=== PATIENT | male | born 1975 | race American Indian/Alaskan Native ===

== ENCOUNTER 2017-07-01 17:45 | Inpatient (IN) | payer BC, OTHER ==
[2017-07-01 18:23] LABS: Monocytes % (Auto) 5.4 % (0.0-7.3); Red Blood Count 4.98 M/mm3 (3.65-5.03)
[2017-07-01] MEDS ORDERED: NACL 0.9% 1000 ML 1,000 ML ONE (18:26)
[2017-07-01 18:33] LABS: Lymphocytes # (Auto) 0.9 K/mm3 (1.2-5.4)
[2017-07-01] MEDS ORDERED: NACL 0.9% 1000 ML 1,000 ML IV ONE (18:40)
[2017-07-01 18:48] LABS: Bilirubin,Urine NEG (Negative); Blood,Urine MOD (Negative); Color,Urine Straw (Yellow); Mucus,Urine FEW /HPF; Protein,Urine <15 mg/dL mg/dL (Negative); RBC,Urine < 1.0 /HPF (0.0-6.0); Urobilinogen,Urine < 2.0 mg/dL (<2.0)
[2017-07-01 18:58] LABS: Basophils % (Auto) 0.3 % (0.0-1.8); Hematocrit 48.2 % (35.5-45.6); Hemoglobin 14.5 gm/dl (11.8-15.2); Lymphocytes % (Auto) 5.5 % (13.4-35.0); Mean Corpuscular HGB Conc 30 % (32-34); Mean Corpuscular Hemoglobin 29 pg (28-32); Mean Corpuscular Volume 97 fl (84-94); Platelet Count 373 K/mm3 (140-440)
--- NOTE | 2017-07-01 19:04 | Emergency Department Report ---
ED General Adult HPI - General Chief complaint: Hyperglycemia Stated complaint: ABD PAIN/VOMITING Time Seen by Provider: 07/01/17 18:20 Source: patient Mode of arrival: Wheelchair Limitations: No Limitations - History of Present Illness Initial comments: Patient presents to emergency department with 2 weeks of increased thirst and urination. Patient also has had unexplained weight loss. Patient describes a spelled week as well for last 2 weeks. The patient denies chest pain, shortness breath, headache -: Gradual Radiation: non-radiation Severity scale (0 -10): 0 Quality: other (weak) Consistency: constant Improves with: none Worsens with: none Associated Symptoms: other (increased urination, increased thirst, unexplained weight loss) Treatments Prior to Arrival: none - Related Data Allergies Allergy/AdvReac Type Severity Reaction Status Date / Time No Known Allergies Allergy Unverified 07/01/17 17:53 ED Review of Systems ROS: Stated complaint: ABD PAIN/VOMITING Other details as noted in HPI Constitutional: denies: chills, fever Eyes: denies: eye pain, eye discharge, vision change ENT: denies: ear pain, throat pain Respiratory: denies: cough, shortness of breath, wheezing Cardiovascular: denies: chest pain, palpitations Endocrine: increased thirst, increased urine, unexplained weight loss Gastrointestinal: denies: abdominal pain, nausea, diarrhea Genitourinary: denies: urgency, dysuria Musculoskeletal: denies: back pain, joint swelling, arthralgia Skin: denies: rash, lesions Neurological: denies: headache, weakness, paresthesias Psychiatric: denies: anxiety, depression Hematological/Lymphatic: denies: easy bleeding, easy bruising ED Past Medical Hx - Past Medical History Previous Medical History?: No - Surgical History Past Surgical History?: No - Social History Smoking Status: Smoker, Current Status Unknown Substance Use Type: None ED Physical Exam - General Limitations: No Limitations General appearance: alert, in no apparent distress - Head Head exam: Present: atraumatic, normocephalic - Eye Eye exam: Present: normal appearance - ENT ENT exam: Present: mucous membranes dry, other - Neck Neck exam: Present: normal inspection - Respiratory Respiratory exam: Present: normal lung sounds bilaterally. Absent: respiratory distress - Cardiovascular Cardiovascular Exam: Present: normal rhythm, tachycardia. Absent: systolic murmur, diastolic murmur, rubs, gallop - GI/Abdominal GI/Abdominal exam: Present: soft, normal bowel sounds - Rectal Rectal exam: Present: deferred - Extremities Exam Extremities exam: Present: normal inspection - Back Exam Back exam: Present: normal inspection - Neurological Exam Neurological exam: Present: alert, oriented X3 - Psychiatric Psychiatric exam: Present: normal affect, normal mood - Skin Skin exam: Present: warm, dry, intact, normal color. Absent: rash ED Course Vital Signs 07/01/17 07/01/17 07/01/17 17:53 18:19 18:20 Temperature 97.5 F L Pulse Rate 118 H 100 H 100 H Respiratory 18 17 Rate Blood Pressure 143/94 Blood Pressure 128/93 [Left] O2 Sat by Pulse 98 99 Oximetry ED Medical Decision Making - Lab Data Result diagrams: 07/01/17 18:02 07/01/17 18:02 - Medical Decision Making Discussed results with patient and his spouse. 3 L of IV fluid were given Insulin drip was started Critical Care Time: Yes Critical care time in (mins) excluding proc time.: 45 Critical care attestation.: If time is entered above; I have spent that time in minutes in the direct care of this critically ill patient, excluding procedure time. ED Disposition Clinical Impression: DKA (diabetic ketoacidoses) Disposition: DC-09 OP ADMIT IP TO THIS HOSP Is pt being admited?: Yes Does the pt Need Aspirin: No Condition: Fair Instructions: Diabetic Ketoacidosis (ED) Referrals: YAMILKA BURROUGHS MD [Staff Physician] - 3-5 Days Time of Disposition: 19:36
[2017-07-01] MEDS ORDERED: NACL 0.9% 1000 ML 2,000 ML IV ONE (19:10)
[2017-07-01] MEDS ORDERED: D50W (25GM) Syringe IV PRN ×2 (19:21→21:36)
[2017-07-01] MEDS: HumuLIN R 100 UNITS in NACL 0.9% 99 ML IV SCH ×2 (20:01→23:09)
[2017-07-01 20:12] LABS: Calcium 8.6 mg/dL (8.4-10.2)
--- NOTE | 2017-07-01 21:40 | History and Physical Report ---
History of Present Illness Date of examination: 07/01/17 Date of admission: 07/01/17 19:37 Chief complaint: Feeling sick History of present illness: A 42 y/o male with no significant Med history, Presented with N/V, feeling sick , found to have BG more than 1000. Per pt and girlfriend by the bedside, pt has been sick for more than 2-3 weeks, with 60 lb weight loss, poor appetite, abdominal pain, N/V, diarrhea. 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 Due to being very sick, pt was in bed for about a week, refused to come to the ED, but was then forced to come by his girlfriend. Pt is severely weak and he is barely able to speak. ED Course On presentation to the ED BG was more than 1000, pt was found to be in severe DKA, he received IVF boluses , then started on Insulin drip . Stabilized enough and then referred to the hospital medicine service for admission and management Past History Past Medical History: denies: diabetes, hyperthyroidism, hypertension Past Surgical History: denies: No surgical history, appendectomy Social history: single, lives with family (ocasional alcohol use, he is a truck rental service attendant) Family history: diabetes (in mother) Medications and Allergies Allergies Allergy/AdvReac Type Severity Reaction Status Date / Time No Known Allergies Allergy Unverified 07/01/17 17:53 Active Meds: Active Medications Dextrose (D50w (25gm) Syringe) 0 ml IV PRN PRN PRN Reason: Hypoglycemia Insulin Human Regular 100 (units/ Sodium Chloride) 100 mls @ 1 mls/hr IV TITR GUIDO; Protocol Last Admin: 07/01/17 20:01 Dose: 8 units/hr, 8 mls/hr Review of Systems Constitutional: weight loss, anorexia, fatigue, weakness, malaise, poor appetite Eyes: bilateral: blurred vision, decreased vision Ears, nose, mouth and throat: no ear pain, no ear discharge, no tinnitis, no decreased hearing, no nasal congestion, no nasal discharge Cardiovascular: no chest pain, no orthopnea, no palpitations, no rapid/ irregular heart beat Respiratory: no cough with sputum, no excessive sputum, no wheezing, no pleurisy Gastrointestinal: abdominal pain, nausea, vomiting, diarrhea, constipation (now constipated) Genitourinary Male: urinary frequency, urinary hesitancy (polyuria), no dysuria Rectal: no incontinence, no itching, no hemorrhoids Musculoskeletal: muscle weakness, no low back pain, no shooting leg pain, no leg numbness/tingling, no muscle cramps, no myalgias, no limitation of motion Integumentary: no pruritis, no darkening of skin, no depigmentation, no dryness , no color changes Neurological: weakness, balance difficulties, no tingling, no convulsions, no aphasia, no change in speech Psychiatric: no anxiety, no memory loss, no sleep disturbances, no hopelessness , no anhedonia Endocrine: polyphagia, excessive thirst, polydipsia, polyuria, weight change Hematologic/Lymphatic: no easy bruising, no lymphadenopathy, no lymphedema Allergic/Immunologic: seasonal allergies, no allergic rhinitis, no anaphylaxis, no angioedema Exam - Constitutional Vitals: Temp Pulse Resp BP Pulse Ox 98.1 F 102 H 14 128/95 98 07/01/17 21:00 07/01/17 20:27 07/01/17 20:27 07/01/17 20:27 07/01/17 20:27 General appearance: Present: no acute distress, other (slim stature, extremely weak) - EENT Eyes: Present: PERRL, EOM intact ENT: hearing intact, dentition normal, thrush (extensive) - Neck Neck: Present: supple, normal ROM - Respiratory Respiratory: bilateral: CTA, negative: diminished, rales - Cardiovascular Rhythm: regular Heart Sounds: Present: S1 & S2 - Extremities Extremities: no ischemia, pulses intact, No edema, normal temperature, normal color Peripheral Pulses: within normal limits - Abdominal General gastrointestinal: Present: soft, non-tender, non-distended, normal bowel sounds Male genitourinary: Present: deferred - Rectal Rectal Exam: deferred - Integumentary Integumentary: Present: clear, warm, decreased turgor - Musculoskeletal Musculoskeletal: strength equal bilaterally, generalized weakness - Psychiatric Psychiatric: appropriate mood/affect, intact judgment & insight, memory intact, cooperative - Neurologic Neurologic: CNII-XII intact, moves all extremities - Allied Health Allied health notes reviewed: nursing Results - Labs CBC & Chem 7: 07/01/17 18:02 07/02/17 04:25 Labs: Laboratory Last Values WBC 17.2 K/mm3 (4.5-11.0) H 07/01/17 18: RBC 4.98 M/mm3 (3.65-5.03) 07/01/17 18:02 Hgb 14.5 gm/dl (11.8-15.2) 07/01/17 18:02 Hct 48.2 % (35.5-45.6) H 07/01/17 18:02 MCV 97 fl (84-94) H 07/01/17 18:02 MCH 29 pg (28-32) 07/01/17 18: MCHC 30 % (32-34) L 07/01/17 18: RDW 14.0 % (13.2-15.2) 07/01/17 18: Plt Count 373 K/mm3 (140-440) 07/01/17 18:02 Lymph % (Auto) 5.5 % (13.4-35.0) L 07/01/17 18: [place] % (Auto) 5.4 % (0.0-7.3) 07/01/17 18: Eos % (Auto) 0.0 % (0.0-4.3) 07/01/17 18:02 Baso % (Auto) 0.3 % (0.0-1.8) 07/01/17 18:02 Lymph # 0.9 K/mm3 (1.2-5.4) L 07/01/17 18:02 [place] # 1.0 K/mm3 (0.0-0.8) H 07/01/17 18:02 Eos # 0.0 K/mm3 (0.0-0.4) 07/01/17 18:02 Baso # 0.0 K/mm3 (0.0-0.1) 07/01/17 18: Seg Neutrophils % 88.7 % (40.0-70.0) H 07/01/17 18: Seg Neutrophils # 15.9 K/mm3 (1.8-7.7) H 07/01/17 18:02 VBG pH 7.105 (7.320-7.420) L* 07/01/17 18:02 Sodium 125 mmol/L (137-145) L 07/01/17 19:30 Potassium 6.2 mmol/L (3.6-5.0) H* 07/01/17 19:30 Chloride 78.8 mmol/L (98-107) L 07/01/17 19:30 Carbon Dioxide 9 mmol/L (22-30) L* 07/01/17 19:30 Anion Gap 43 mmol/L 07/01/17 19:30 BUN 31 mg/dL (9-20) H 07/01/17 19:30 Creatinine 1.6 mg/dL (0.8-1.5) H 07/01/17 19:30 Estimated GFR 58 ml/min 07/01/17 19:30 BUN/Creatinine Ratio 19 % 07/01/17 19:30 Glucose 1012 mg/dL (75-100) H* 07/01/17 19:30 POC Glucose > 500 (70-105) H 07/01/17 17:53 Calcium 8.6 mg/dL (8.4-10.2) 07/01/17 19:30 Phosphorus 6.10 mg/dL (2.5-4.5) H 07/01/17 19:30 Magnesium 2.70 mg/dL (1.7-2.3) H 07/01/17 19:30 Urine Color Straw (Yellow) 07/01/17 18:38 Urine Turbidity Clear (Clear) 07/01/17 18:38 Urine pH 5.0 (5.0-7.0) 07/01/17 18:38 Ur Specific [place] 1.026 (1.003-1.030) 07/01/17 18:38 Urine Protein <15 mg/dl mg/dL (Negative) 07/01/17 18:38 Urine Glucose (UA) >=500 mg/dL (Negative) 07/01/17 18:38 Urine Ketones 80 mg/dL (Negative) 07/01/17 18:38 Urine Blood Mod (Negative) 07/01/17 18:38 Urine Nitrite Neg (Negative) 07/01/17 18:38 Urine Bilirubin Neg (Negative) 07/01/17 18:38 Urine Urobilinogen < 2.0 mg/dL (<2.0) 07/01/17 18:38 Ur Leukocyte Esterase Neg (Negative) 07/01/17 18:38 Urine WBC (Auto) 1.0 /HPF (0.0-6.0) 07/01/17 18:38 Urine RBC (Auto) < 1.0 /HPF (0.0-6.0) 07/01/17 18:38 Urine Mucus Few /HPF 07/01/17 18:38 Assessment and Plan Assessment and plan: Severe DKA ( New Onset DM ) Severe Dehydration with hyponatremia Acut Hyperkalemia 2/2 severe acidosis Oral candidiasis Weight loss Macrocytosis Leukocytosis 2/2 dehydration and DKA Generalized weakness N/V Poor Appetite Plan Admit inpt to ICU DKA protocol Nystatin Nutrition consult Fall precautions at all times' Aggressive IVF hydration Q2-4 bmp TSH HBA1c recheck ABG Monitor very closely pt is critically sick and at risk of deterioration, increased Morbidity and mortality including . More than 40 mins of CCT spent, of which more than 50% of the time was spent in pt counseling and coordination of care.
[2017-07-01] MEDS ORDERED: HumuLIN R 100 UNITS in NACL 0.9% 99 ML IV SCH (22:00)
[2017-07-01 22:42] LABS: BUN/Creatinine Ratio 21; Blood Urea Nitrogen 27 mg/dL (9-20); Calcium 7.9 mg/dL (8.4-10.2); Hemolysis Index 6
[2017-07-01 23:57] LABS: BUN/Creatinine Ratio 19; Blood Urea Nitrogen 26 mg/dL (9-20); Calcium 7.6 mg/dL (8.4-10.2); Hemolysis Index 4
[2017-07-02] MEDS: HumuLIN R 100 UNITS in NACL 0.9% 99 ML IV SCH (00:09)
[2017-07-02] MEDS: D5W/0.45% NACL/KCL 20 MEQ 20 MEQ/1,000 ML BAG IV SCH ×2 (03:05→11:25)
[2017-07-02] MEDS ORDERED: DIFLUCAN 200 MG/100 ML BAG IV ONE (04:43)
[2017-07-02] MEDS ORDERED: LOVENOX SUB-Q ONE (04:44)
[2017-07-02 04:58] LABS: BUN/Creatinine Ratio 17; Blood Urea Nitrogen 20 mg/dL (9-20); Hemolysis Index 4
[2017-07-02 09:40] LABS: BUN/Creatinine Ratio 19; Blood Urea Nitrogen 19 mg/dL (9-20); Calcium 8.8 mg/dL (8.4-10.2)
[2017-07-02 09:41] LABS: Hemolysis Index 14
[2017-07-02] MEDS ORDERED: PROTONIX IV SCH (10:00)
--- NOTE | 2017-07-02 10:12 | Progress Note ---
Assessment and Plan Assessment and plan: --Diabetic ketoacidosis; Continue DKA protocol, vigorous IV hydration, insulin drip Closely monitor electrolytes and correct as needed Clear liquids as tolerated, he may start ADA diet and transitioned to long- acting insulin once a-gap closes and blood sugars are reasonable levels Hemoglobin A1c 16.0 --New onset diabetes mellitus; Diabetic education, nutrition consult Hospital home health at discharge as needed --Severe acidosis; secondary to DKA Continue IV fluids and supportive care --Pseudohyponatremia; secondary to hyperglycemia Improved --Hyperkalemia; corrected, closely monitor electrolytes --Acute kidney injury; vasomotor nephropathy Continue vigorous IV hydration, closely monitor renal function and avoid nephrotoxins Trending down --DVT prophylaxis; with Lovenox Closely monitor the patient and adjust management as needed Critical care time 32 minutes History Interval history: Patient seen and examined medical records reviewed Admitted with diabetic ketoacidosis, new onset diabetes On insulin drip, nothing by mouth status Patient's acidosis and anion gap gradually improving Patient is lethargic but easily awakens asks for some water Denies nausea vomiting Vital signs reviewed Hospitalist Physical - Constitutional Vitals: Temp Pulse Resp BP Pulse Ox 98.1 F 76 10 L 119/69 99 07/02/17 04:02 07/02/17 08:00 07/02/17 08:00 07/02/17 08:00 07/02/17 08:00 General appearance: Present: no acute distress, well-nourished, other (lethargy easily awakens) - EENT Eyes: Present: PERRL, EOM intact - Neck Neck: Present: supple, normal ROM - Respiratory Respiratory effort: normal Respiratory: negative: rales, rhonchi, wheezing - Cardiovascular Rhythm: regular Heart Sounds: Present: S1 & S2 - Extremities Extremities: no ischemia, No edema - Abdominal General gastrointestinal: soft, non-tender, non-distended, normal bowel sounds - Integumentary Integumentary: Present: clear, warm - Psychiatric Psychiatric: appropriate mood/affect, cooperative - Neurologic Neurologic: CNII-XII intact, moves all extremities Results - Labs CBC & Chem 7: 07/01/17 18:02 07/02/17 08:46 Labs: Laboratory Last Values WBC 17.2 K/mm3 (4.5-11.0) H 07/01/17 18:02 RBC 4.98 M/mm3 (3.65-5.03) 07/01/17 18:02 Hgb 14.5 gm/dl (11.8-15.2) 07/01/17 18:02 Hct 48.2 % (35.5-45.6) H 07/01/17 18:02 MCV 97 fl (84-94) H 07/01/17 18:02 MCH 29 pg (28-32) 07/01/17 18: MCHC 30 % (32-34) L 07/01/17 18:02 RDW 14.0 % (13.2-15.2) 07/01/17 18: Plt Count 373 K/mm3 (140-440) 07/01/17 18:02 Lymph % (Auto) 5.5 % (13.4-35.0) L 07/01/17 18:02 [place] % (Auto) 5.4 % (0.0-7.3) 07/01/17 18:02 Eos % (Auto) 0.0 % (0.0-4.3) 07/01/17 18:02 Baso % (Auto) 0.3 % (0.0-1.8) 07/01/17 18:02 Lymph # 0.9 K/mm3 (1.2-5.4) L 07/01/17 18:02 [place]ell # 1.0 K/mm3 (0.0-0.8) H 07/01/17 18:02 Eos # 0.0 K/mm3 (0.0-0.4) 07/01/17 18: Baso # 0.0 K/mm3 (0.0-0.1) 07/01/17 18:02 Seg Neutrophils % 88.7 % (40.0-70.0) H 07/01/17 18: Seg Neutrophils # 15.9 K/mm3 (1.8-7.7) H 07/01/17 18:02 VBG pH 7.105 (7.320-7.420) L* 07/01/17 18:02 Sodium 145 mmol/L (137-145) 07/02/17 08:46 Potassium 4.2 mmol/L (3.6-5.0) 07/02/17 08:46 Chloride 109.3 mmol/L (98-107) H 07/02/17 08:46 Carbon Dioxide 16 mmol/L (22-30) L 07/02/17 08:46 Anion Gap 24 mmol/L 07/02/17 08:46 BUN 19 mg/dL (9-20) 07/02/17 08:46 Creatinine 1.0 mg/dL (0.8-1.5) 07/02/17 08:46 Estimated GFR > 60 ml/min 07/02/17 08:46 BUN/Creatinine Ratio 19 % 07/02/17 08:46 Glucose 233 mg/dL (75-100) H 07/02/17 08:46 POC Glucose 218 (70-105) H 07/02/17 09:12 Hemoglobin A1c 16.0 % (4-6) H 07/01/17 21:56 Calcium 8.8 mg/dL (8.4-10.2) 07/02/17 08:46 Phosphorus 2.40 mg/dL (2.5-4.5) L D 07/01/17 21:56 Magnesium 2.40 mg/dL (1.7-2.3) H 07/01/17 21:56 TSH 0.435 mlU/mL (0.270-4.200) 07/02/17 08:46 Urine Color Straw (Yellow) 07/01/17 18:38 Urine Turbidity Clear (Clear) 07/01/17 18:38 Urine pH 5.0 (5.0-7.0) 07/01/17 18:38 Ur Specific [place] 1.026 (1.003-1.030) 07/01/17 18:38 Urine Protein <15 mg/dl mg/dL (Negative) 07/01/17 18:38 Urine Glucose (UA) >=500 mg/dL (Negative) 07/01/17 18:38 Urine Ketones 80 mg/dL (Negative) 07/01/17 18:38 Urine Blood Mod (Negative) 07/01/17 18:38 Urine Nitrite Neg (Negative) 07/01/17 18:38 Urine Bilirubin Neg (Negative) 07/01/17 18:38 Urine Urobilinogen < 2.0 mg/dL (<2.0) 07/01/17 18:38 Ur Leukocyte Esterase Neg (Negative) 07/01/17 18:38 Urine WBC (Auto) 1.0 /HPF (0.0-6.0) 07/01/17 18:38 Urine RBC (Auto) < 1.0 /HPF (0.0-6.0) 07/01/17 18:38 Urine Mucus Few /HPF 07/01/17 18:38
[2017-07-02] MEDS: NYSTATIN PO SCH ×4 (10:18→21:28)
[2017-07-02] MEDS: SODIUM CHLORIDE FLUSH SYRINGE 10 ML IV PRN (10:19)
[2017-07-02] MEDS: PEPCID IV SCH ×2 (10:19→21:28)
[2017-07-02 14:36] LABS: BUN/Creatinine Ratio 18; Blood Urea Nitrogen 16 mg/dL (9-20); Calcium 8.3 mg/dL (8.4-10.2); Hemolysis Index 10
[2017-07-02] MEDS ORDERED: TYLENOL PO PRN (15:29)
[2017-07-02] MEDS ORDERED: PERCOCET 5/325 PO PRN (15:29)
[2017-07-02] MEDS: HumuLIN R SUB-Q SCH ×2 (17:17→22:50)
[2017-07-02 20:17] LABS: BUN/Creatinine Ratio 17; Blood Urea Nitrogen 15 mg/dL (9-20); Calcium 8.5 mg/dL (8.4-10.2); Hemolysis Index 83
[2017-07-02] MEDS: COLACE PO SCH (21:28)
[2017-07-02] MEDS: LOVENOX SUB-Q SCH (21:29)
[2017-07-02] MEDS ORDERED: AMBIEN PO PRN (22:00)
[2017-07-03] MEDS: NACL 0.9% 1000 ML 1,000 ML IV SCH ×3 (03:40→23:03)
[2017-07-03] MEDS: HumuLIN R SUB-Q SCH ×4 (08:20→23:00)
[2017-07-03] MEDS: COLACE PO SCH ×2 (09:03→21:37)
[2017-07-03] MEDS: NYSTATIN PO SCH ×4 (09:03→21:36)
[2017-07-03] MEDS: PEPCID IV SCH ×2 (09:04→21:37)
[2017-07-03] MEDS ORDERED: SODIUM PHOSPHATE 45 MMOL in NACL 0.9% 500 ML 500 ML IV ONE (13:00)
[2017-07-03 14:39] LABS: BUN/Creatinine Ratio 12; Blood Urea Nitrogen 12 mg/dL (9-20); Calcium 7.6 mg/dL (8.4-10.2); Hemolysis Index 3
--- NOTE | 2017-07-03 18:42 | Progress Note ---
Assessment and Plan Assessment and plan: --Diabetic ketoacidosis; corrected Continue supportive care, HbA1c 16 --New onset type 2 diabetes mellitus; uncontrolled Accu-Chek sliding scale coverage and ADA diet, increase insulin dose Diabetic education, nutrition education --Severe hypophosphatemia; replace per protocol and monitor levels --Hypokalemia; replace per protocol --Severe dehydration, aggressive IV hydration and closely monitor --Severe acidosis; secondary to DKA significantly improved Continue IV fluids and supportive care --Pseudohyponatremia; resolved --Acute kidney injury; present on admission ,vasomotor nephropathy Resolved --DVT prophylaxis; with Lovenox Closely monitor the patient and adjust management as needed Possible discharge home in 1-2 days if stable Plan of care is reviewed with the patient and his nurse History Interval history: Patient seen and examined medical records reviewed Admitted with DKA, now off insulin drip, patient's blood sugar source moderate control Denies nausea or vomiting Vital signs reviewed Hospitalist Physical - Constitutional Vitals: Temp Pulse Resp BP Pulse Ox 98.3 F 68 18 124/79 96 07/03/17 04:53 07/03/17 04:53 07/03/17 04:53 07/03/17 04:53 07/03/17 04:53 General appearance: Present: no acute distress, well-nourished, other (lethargy easily awakens) - EENT Eyes: Present: PERRL, EOM intact - Neck Neck: Present: supple, normal ROM - Respiratory Respiratory effort: normal Respiratory: negative: rales, rhonchi, wheezing - Cardiovascular Rhythm: regular Heart Sounds: Present: S1 & S2 - Extremities Extremities: no ischemia, No edema - Abdominal General gastrointestinal: soft, non-tender, non-distended, normal bowel sounds - Integumentary Integumentary: Present: clear, warm - Psychiatric Psychiatric: appropriate mood/affect, cooperative - Neurologic Neurologic: CNII-XII intact, moves all extremities Results - Labs CBC & Chem 7: 07/01/17 18:02 07/03/17 14:02 Labs: Laboratory Last Values WBC 17.2 K/mm3 (4.5-11.0) H 07/01/17 18:02 RBC 4.98 M/mm3 (3.65-5.03) 07/01/17 18:02 Hgb 14.5 gm/dl (11.8-15.2) 07/01/17 18:02 Hct 48.2 % (35.5-45.6) H 07/01/17 18:02 MCV 97 fl (84-94) H 07/01/17 18:02 MCH 29 pg (28-32) 07/01/17 18:02 MCHC 30 % (32-34) L 07/01/17 18:02 RDW 14.0 % (13.2-15.2) 07/01/17 18:02 Plt Count 373 K/mm3 (140-440) 07/01/17 18:02 Lymph % (Auto) 5.5 % (13.4-35.0) L 07/01/17 18:02 [place] % (Auto) 5.4 % (0.0-7.3) 07/01/17 18:02 Eos % (Auto) 0.0 % (0.0-4.3) 07/01/17 18:02 Baso % (Auto) 0.3 % (0.0-1.8) 07/01/17 18:02 Lymph # 0.9 K/mm3 (1.2-5.4) L 07/01/17 18:02 [place] # 1.0 K/mm3 (0.0-0.8) H 07/01/17 18:02 Eos # 0.0 K/mm3 (0.0-0.4) 07/01/17 18:02 Baso # 0.0 K/mm3 (0.0-0.1) 07/01/17 18:02 Seg Neutrophils % 88.7 % (40.0-70.0) H 07/01/17 18:02 Seg Neutrophils # 15.9 K/mm3 (1.8-7.7) H 07/01/17 18:02 VBG pH 7.105 (7.320-7.420) L* 07/01/17 18:02 Sodium 136 mmol/L (137-145) L 07/03/17 14:02 Potassium 3.5 mmol/L (3.6-5.0) L D 07/03/17 14:02 Chloride 101.3 mmol/L (98-107) 07/03/17 14:02 Carbon Dioxide 21 mmol/L (22-30) L D 07/03/17 14:02 Anion Gap 17 mmol/L 07/03/17 14:02 BUN 12 mg/dL (9-20) 07/03/17 14:02 Creatinine 1.0 mg/dL (0.8-1.5) 07/03/17 14:02 Estimated GFR > 60 ml/min 07/03/17 14:02 BUN/Creatinine Ratio 12 % 07/03/17 14:02 Glucose 387 mg/dL (75-100) H 07/03/17 14:02 POC Glucose 249 (70-105) H 07/03/17 06:35 Hemoglobin A1c 16.0 % (4-6) H 07/01/17 21:56 Calcium 7.6 mg/dL (8.4-10.2) L 07/03/17 14:02 Phosphorus 1.00 mg/dL (2.5-4.5) L D 07/03/17 04:48 Magnesium 2.40 mg/dL (1.7-2.3) H 07/03/17 04:48 TSH 0.435 mlU/mL (0.270-4.200) 07/02/17 08:46 Urine Color Straw (Yellow) 07/01/17 18:38 Urine Turbidity Clear (Clear) 07/01/17 18:38 Urine pH 5.0 (5.0-7.0) 07/01/17 18:38 Ur Specific [place] 1.026 (1.003-1.030) 07/01/17 18:38 Urine Protein <15 mg/dl mg/dL (Negative) 07/01/17 18:38 Urine Glucose (UA) >=500 mg/dL (Negative) 07/01/17 18:38 Urine Ketones 80 mg/dL (Negative) 07/01/17 18:38 Urine Blood Mod (Negative) 07/01/17 18:38 Urine Nitrite Neg (Negative) 07/01/17 18:38 Urine Bilirubin Neg (Negative) 07/01/17 18:38 Urine Urobilinogen < 2.0 mg/dL (<2.0) 07/01/17 18:38 Ur Leukocyte Esterase Neg (Negative) 07/01/17 18:38 Urine WBC (Auto) 1.0 /HPF (0.0-6.0) 07/01/17 18:38 Urine RBC (Auto) < 1.0 /HPF (0.0-6.0) 07/01/17 18:38 Urine Mucus Few /HPF 07/01/17 18:38
[2017-07-03] MEDS: LOVENOX SUB-Q SCH (21:37)
[2017-07-04 05:58] LABS: Alanine Aminotransferase 8 units/L (7-56); Albumin 2.7 g/dL (3.9-5); BUN/Creatinine Ratio 13; Blood Urea Nitrogen 9 mg/dL (9-20); Calcium 7.7 mg/dL (8.4-10.2); Hemolysis Index 5
[2017-07-04] MEDS: NACL 0.9% 1000 ML 1,000 ML IV SCH (06:27)
[2017-07-04] MEDS: HumuLIN R SUB-Q SCH ×4 (07:23→23:09)
[2017-07-04] MEDS ORDERED: K-DUR PO ONE (08:00)
[2017-07-04] MEDS: NYSTATIN PO SCH ×4 (10:09→21:44)
[2017-07-04] MEDS: COLACE PO SCH ×2 (10:10→21:44)
[2017-07-04] MEDS: PEPCID IV SCH ×2 (10:10→21:44)
[2017-07-04] MEDS: KCL 10MEQ/100ML 10 MEQ/100 ML BAG IV SCH ×3 (10:44→15:57)
--- NOTE | 2017-07-04 19:09 | Progress Note ---
Assessment and Plan Assessment and plan: --Diabetic ketoacidosis; corrected Continue supportive care, HbA1c 16 --New onset type 2 diabetes mellitus; uncontrolled Accu-Chek sliding scale coverage and ADA diet, increase 7-30 insulin dose Diabetic education, nutrition education Patient is noncompliant with diet strongly advised to comply --Severe hypophosphatemia; corrected --Severe Hypokalemia; replace per protocol --Severe dehydration, aggressive IV hydration significantly improved --Severe acidosis; secondary to DKA significantly improved Continue IV fluids and supportive care --Pseudohyponatremia; resolved --Acute kidney injury; present on admission ,vasomotor nephropathy Resolved --DVT prophylaxis; with Lovenox Closely monitor the patient and adjust management as needed Possible discharge home in 1-2 days if stable Plan of care is reviewed with the patient and his nurse History Interval history: Patient seen and examined medical records reviewed Patient sugars are still uncontrolled Has severe hypokalemia which is being corrected Patient has no new complaints Vital signs revealed Hospitalist Physical - Constitutional Vitals: Temp Pulse Resp BP Pulse Ox 98.5 F 80 18 105/58 96 07/04/17 16:03 07/04/17 16:03 07/04/17 16:03 07/04/17 16:03 07/04/17 16:03 General appearance: Present: no acute distress, well-nourished, other (lethargy easily awakens) - EENT Eyes: Present: PERRL, EOM intact - Neck Neck: Present: supple, normal ROM - Respiratory Respiratory effort: normal Respiratory: bilateral: diminished, negative: rales, rhonchi, wheezing - Cardiovascular Rhythm: regular Heart Sounds: Present: S1 & S2 - Extremities Extremities: no ischemia, No edema Peripheral Pulses: within normal limits - Abdominal General gastrointestinal: soft, non-tender, non-distended, normal bowel sounds - Integumentary Integumentary: Present: clear, warm - Psychiatric Psychiatric: appropriate mood/affect, cooperative - Neurologic Neurologic: CNII-XII intact, moves all extremities Results - Labs CBC & Chem 7: 07/01/17 18:02 07/04/17 14:53 Labs: Laboratory Last Values WBC 17.2 K/mm3 (4.5-11.0) H 07/01/17 18:02 RBC 4.98 M/mm3 (3.65-5.03) 07/01/17 18:02 Hgb 14.5 gm/dl (11.8-15.2) 07/01/17 18:02 Hct 48.2 % (35.5-45.6) H 07/01/17 18:02 MCV 97 fl (84-94) H 07/01/17 18:02 MCH 29 pg (28-32) 07/01/17 18: MCHC 30 % (32-34) L 07/01/17 18:02 RDW 14.0 % (13.2-15.2) 07/01/17 18: Plt Count 373 K/mm3 (140-440) 07/01/17 18:02 Lymph % (Auto) 5.5 % (13.4-35.0) L 07/01/17 18: [place] % (Auto) 5.4 % (0.0-7.3) 07/01/17 18: Eos % (Auto) 0.0 % (0.0-4.3) 07/01/17 18: Baso % (Auto) 0.3 % (0.0-1.8) 07/01/17 18:02 Lymph # 0.9 K/mm3 (1.2-5.4) L 07/01/17 18:02 Kidder # 1.0 K/mm3 (0.0-0.8) H 07/01/17 18:02 Eos # 0.0 K/mm3 (0.0-0.4) 07/01/17 18:02 Baso # 0.0 K/mm3 (0.0-0.1) 07/01/17 18:02 Seg Neutrophils % 88.7 % (40.0-70.0) H 07/01/17 18:02 Seg Neutrophils # 15.9 K/mm3 (1.8-7.7) H 07/01/17 18:02 VBG pH 7.105 (7.320-7.420) L* 07/01/17 18:02 Sodium 141 mmol/L (137-145) 07/04/17 04:54 Potassium 3.5 mmol/L (3.6-5.0) L D 07/04/17 14:53 Chloride 105.0 mmol/L (98-107) 07/04/17 04:54 Carbon Dioxide 23 mmol/L (22-30) 07/04/17 04:54 Anion Gap 16 mmol/L 07/04/17 04:54 BUN 9 mg/dL (9-20) 07/04/17 04:54 Creatinine 0.7 mg/dL (0.8-1.5) L 07/04/17 04:54 Estimated GFR > 60 ml/min 07/04/17 04:54 BUN/Creatinine Ratio 13 % 07/04/17 04:54 Glucose 107 mg/dL (75-100) H 07/04/17 04:54 POC Glucose 370 (70-105) H 07/04/17 16:51 Hemoglobin A1c 16.0 % (4-6) H 07/01/17 21:56 Calcium 7.7 mg/dL (8.4-10.2) L 07/04/17 04:54 Phosphorus 2.60 mg/dL (2.5-4.5) D 07/04/17 04:54 Magnesium 1.90 mg/dL (1.7-2.3) 07/04/17 04:54 Total Bilirubin 0.20 mg/dL (0.1-1.2) 07/04/17 04:54 AST 11 units/L (5-40) 07/04/17 04:54 ALT 8 units/L (7-56) 07/04/17 04:54 Alkaline Phosphatase 82 units/L (35-129) 07/04/17 04:54 Total Protein 5.2 g/dL (6.3-8.2) L 07/04/17 04:54 Albumin 2.7 g/dL (3.9-5) L 07/04/17 04:54 Albumin/Globulin Ratio 1.1 % 07/04/17 04:54 TSH 0.435 mlU/mL (0.270-4.200) 07/02/17 08:46 Urine Color Straw (Yellow) 07/01/17 18:38 Urine Turbidity Clear (Clear) 07/01/17 18:38 Urine pH 5.0 (5.0-7.0) 07/01/17 18:38 Ur Specific [place] 1.026 (1.003-1.030) 07/01/17 18:38 Urine Protein <15 mg/dl mg/dL (Negative) 07/01/17 18:38 Urine Glucose (UA) >=500 mg/dL (Negative) 07/01/17 18:38 Urine Ketones 80 mg/dL (Negative) 07/01/17 18:38 Urine Blood Mod (Negative) 07/01/17 18:38 Urine Nitrite Neg (Negative) 07/01/17 18:38 Urine Bilirubin Neg (Negative) 07/01/17 18:38 Urine Urobilinogen < 2.0 mg/dL (<2.0) 07/01/17 18:38 Ur Leukocyte Esterase Neg (Negative) 07/01/17 18:38 Urine WBC (Auto) 1.0 /HPF (0.0-6.0) 07/01/17 18:38 Urine RBC (Auto) < 1.0 /HPF (0.0-6.0) 07/01/17 18:38 Urine Mucus Few /HPF 07/01/17 18:38
[2017-07-04] MEDS: LOVENOX SUB-Q SCH (21:44)
[2017-07-04] MEDS: SODIUM CHLORIDE FLUSH SYRINGE 10 ML IV PRN (21:45)
[2017-07-05] MEDS: NACL 0.9% 1000 ML 1,000 ML IV SCH (04:38)
[2017-07-05 05:54] LABS: BUN/Creatinine Ratio 14; Blood Urea Nitrogen 10 mg/dL (9-20); Calcium 7.5 mg/dL (8.4-10.2); Hemolysis Index 2
[2017-07-05] MEDS: HumuLIN R SUB-Q SCH ×3 (08:48→17:47)
[2017-07-05] MEDS: COLACE PO SCH (09:57)
[2017-07-05] MEDS: NYSTATIN PO SCH ×2 (09:58→13:35)
[2017-07-05] MEDS ORDERED: PEPCID PO SCH (10:00)
[2017-07-05] MEDS ORDERED: K-DUR PO ONE (10:00)
--- NOTE | 2017-07-05 15:02 | Discharge Summary ---
Providers - Providers Date of Admission: 07/01/17 19:37 Date of discharge: 07/05/17 Attending physician: DARRIN DANIELSON 07/01/17 19:22 Consult to Dietitian/Nutrition [CONS] Routine Physician Instructions: Reason For Exam: DKA Reason for Consult: Nutrition Recommendations Reason for Consult: Diet education Primary care physician: CL[employer]ICAL [employer] PROFESSOR Hospitalization Condition: Fair Disposition: [id number]/[place]-06 HOME [facility] Time spent for discharge: 31 min Core Measure Documentation - Palliative Care Palliative Care/ Comfort Measures: Not Applicable - Core Measures Any of the following diagnoses?: none Exam - Constitutional Vitals: Temp Pulse Resp BP Pulse Ox 98.6 F 72 16 109/67 95 07/05/17 12:21 07/05/17 12:21 07/05/17 12:21 07/05/17 12:21 07/05/17 04:15 General appearance: Present: no acute distress, well-nourished - EENT Eyes: Present: PERRL, EOM intact - Neck Neck: Present: supple, normal ROM - Respiratory Respiratory effort: normal Respiratory: negative: rales, rhonchi, wheezing - Cardiovascular Rhythm: regular Heart Sounds: Present: S1 & S2 - Extremities Extremities: no ischemia, No edema - Abdominal General gastrointestinal: Present: soft, non-tender, non-distended, normal bowel sounds - Integumentary Integumentary: Present: clear, warm - Musculoskeletal Musculoskeletal: strength equal bilaterally - Psychiatric Psychiatric: appropriate mood/affect, cooperative - Neurologic Neurologic: CNII-XII intact, moves all extremities Plan Activity: no restrictions Diet: diabetic Additional Instructions: f/u primary care physician/[facility] 3-4 days. Advised to see private life sciences teacher in 1 week. Strongly advised to adhere to 2 diabetic diet, medications, doctor's follow-up visits Follow up with: YAMILKA BURROUGHS MD [Staff Physician] - 3-5 Days ARISTEO SCOTT MD [Staff Physician] - 7 Days Prescriptions: Famotidine [Pepcid] 20 mg PO BID #20 tablet Insulin NPH/Regular [NovoLIN 70/30] 28 unit SUB-Q BIDDIAB 30 Days units Insulin Regular, Human [HumuLIN R] See Protocol SUB-Q ACHS 30 Days units
[2017-07-05 16:01] VITALS: BP 108/70
== END 2017-07-05 18:00 | disposition home health service (06) | DRG 637 ==
LOC: ED 17:45 → CC1 19:37 → 3A 07-02 20:07
PROVIDERS: ADMIT Family Medicine; ATTEND Internal Medicine
DX: E11.10 Type 2 diabetes mellitus with ketoacidosis without coma (principal); N17.0 Acute kidney failure with tubular necrosis; E87.1 Hypo-osmolality and hyponatremia; B37.0 Candidal stomatitis; E86.0 Dehydration; E87.6 Hypokalemia; R63.4 Abnormal weight loss; Z68.25 Body mass index [BMI] 25.0-25.9, adult; D75.89 Other specified diseases of blood and blood-forming organs; E83.39 Other disorders of phosphorus metabolism
CPT/HCPCS: 36415; 80048; 80053; 81001; 82805; 82962; 83036; 83735; 84100; 84132; 84443; 85025; 99291; J1450; J1650; J1815; J3480; J7030; J7040